=== PATIENT | male | born 1975 | race Caucasian/White ===

== ENCOUNTER 2017-08-17 07:15 | Emergency (ER) | payer OTHER ==
[2017-08-17 07:23] VITALS: TEMP 98.6
--- NOTE | 2017-08-17 07:30 | CPEKG ---
Heart Rate: 64 RR Interval: 938 P-R Interval: 152 QRSD Interval: 88 QT Interval: 380 QTC Interval: 392 P [place]: 19 QRS [place]: 26 T Wave [place]: 25 EKG Severity - NORMAL ECG - EKG Impression: SINUS RHYTHM Electronically Signed By: Phuc Muller 25-Aug-2017 12:34:54
[2017-08-17] MEDS ORDERED: DIAZEPAM 10 MG/2 ML SYR IVP ONE (07:45)
[2017-08-17] MEDS ORDERED: ONDANSETRON 4 MG/2 ML VIAL IVP ONE (07:45)
[2017-08-17] MEDS ORDERED: NS 1,000 ML IV ONE (07:45)
--- NOTE | 2017-08-17 07:48 | EDPHY ---
H & P Stated Complaint: SOB, dizzy, nausea since 2 am Time Seen by Provider: 08/17/17 07:35 HPI/ROS: Chief Complaint: Dizziness, nausea HPI: 42-year-old male woke at 2:00 a.m. with the sensation that the room was spinning and nausea. He went back to sleep. He woke again at 4:00 a.m. with similar sensation and again went back sleep. At 4:45 a.m. this morning he got up to get ready for work. He felt dizzy and nauseated. He went to work and was in the morning brief thing when he started feeling worse. Continue to have some nausea no vomiting. Persistent dizziness. It does seem worse when he moves his head but it is not associated with particular direction. Is not positional. Does not have a history of the same. Does have a history of Graves disease and is currently on Synthroid. Has not had any difficulties with this before no history of dizziness in the past. No recent head injuries or falls. No recent upper respiratory symptoms. Patient was in his usual state health yesterday. He has been off work for the last several days. ROS: 10 point Review of Systems is negative except as noted in the HPI. PMH: Graves disease, hypertension Medications: Lisinopril, Synthroid Allergies: Percocet Social History: No smoking, no alcohol, no recreational drug use Family History: Father had coronary artery disease at an older age Physical Exam: Gen: Awake, Alert, No Distress HEENT: Nose: no rhinorrhea Eyes: PERRLA, EOMI, mild bilateral horizontal nystagmus, not pronounced in a single direction Mouth: Moist mucosa Neck: Supple, no JVD Chest: nontender, lungs clear to auscultation Heart: S1, S2 normal, no murmur Abd: Soft, non-tender, no guarding Back: no CVA tenderness, no midline tenderness Ext: no edema, non-tender Skin: no rash Neuro: CN II-XII intact, Sensation grossly intact, Strength 5/5 in bilateral upper and lower extremities - Personal History Current Tetanus/Diphtheria Vaccine: Unsure Current Tetanus Diphtheria and Acellular Pertussis (TDAP): Unsure - Medical/Surgical History Hx Asthma: No Hx Chronic Respiratory Disease: No Hx Diabetes: No Hx Cardiac Disease: No Hx Renal Disease: No Hx Cirrhosis: No Hx Alcoholism: No Hx HIV/AIDS: No Hx Splenectomy or Spleen Trauma: No Other PMH: htn, hypothyroid - Social History Smoking Status: Never smoked Constitutional: Initial Vital Signs Temperature (C) 37.0 C 08/17/17 07:20 Heart Rate 69 08/17/17 07:20 Respiratory Rate 16 08/17/17 07:20 Blood Pressure 124/94 H 08/17/17 07:20 O2 Sat (%) 100 08/17/17 07:20 O2 Delivery Mode Room Air Allergies/Adverse Reactions: acetaminophen [From Percocet] Allergy (Verified 08/17/17 07:20) oxycodone [From Percocet] Allergy (Verified 08/17/17 07:20) Home Medications: Medication Instructions Recorded Lisinopril 08/17/17 Meclizine HCl [Meclizine HCl 25 mg 25 mg PO BID PRN #20 tab 08/17/17 (RX,OTC)] Ondansetron Odt [Zofran Odt 4 mg 4 mg PO Q4 PRN #10 tab 08/17/17 (*)] Synthroid 08/17/17 Medical Decision Making ED Course/Re-evaluation: 42-year-old male presenting with sudden onset of vertiginous symptoms. Symptoms consistent with benign positional vertigo versus labyrinthitis. He has not have any precipitation of symptoms with any particular type of movement so Jeff maneuver is not indicated at this time. He is improved after some diazepam ondansetron and fluids. He is ambulating unassisted in the department. He is not complaining of some mild headache and upper respiratory symptoms. I suspect he has an early labyrinthitis with upper respiratory infection. Will discharge with meclizine, ondansetron, fluids, follow up with primary care physician in 3-4 days. Return for any worsening symptoms. Does not have any head trauma or gradual onset of symptoms. All of his symptomatology suggest a peripheral cause of his vertiginous symptoms. - Data Points Laboratory Results: Laboratory Results 08/17/17 07:37 08/17/17 07:37 08/17/17 08/17/17 07:37 07:37 WBC 5.26 10^3/uL 10^3/uL (3.80-9.50) RBC 5.39 10^6/uL 10^6/uL (4.40-6.38) Hgb 17.1 g/dL g/dL (13.7-17.5) Hct 47.1 % % (40.0-51.0) MCV 87.4 fL fL (81.5-99.8) MCH 31.7 pg pg (27.9-34.1) MCHC 36.3 g/dL g/dL (32.4-36.7) RDW 13.3 % % (11.5-15.2) Plt Count 227 10^3/uL 10^3/uL (150-400) MPV 10.5 fL fL (8.7-11.7) Neut % (Auto) 53.5 % % (39.3-74.2) Lymph % (Auto) 36.7 % % (15.0-45.0) [place] % (Auto) 5.9 % % (4.5-13.0) Eos % (Auto) 2.7 % % (0.6-7.6) Baso % (Auto) 1.0 % % (0.3-1.7) Nucleat RBC Rel Count 0.0 % % (0.0-0.2) Absolute Neuts (auto) 2.82 10^3/uL 10^3/uL (1.70-6.50) Absolute Lymphs (auto) 1.93 10^3/uL 10^3/uL (1.00-3.00) Absolute Monos (auto) 0.31 10^3/uL 10^3/uL (0.30-0.80) Absolute Eos (auto) 0.14 10^3/uL 10^3/uL (0.03-0.40) Absolute Basos (auto) 0.05 10^3/uL 10^3/uL (0.02-0.10) Absolute Nucleated RBC 0.00 10^3/uL 10^3/uL (0-0.01) Immature Gran % 0.2 % % (0.0-1.1) Immature Gran # 0.01 10^3/uL 10^3/uL (0.00-0.10) Sodium 142 mEq/L mEq/L (134-144) Potassium 5.2 mEq/L mEq/L (3.5-5.2) Chloride 104 mEq/L mEq/L (97-110) Carbon Dioxide 26 mEq/l mEq/l (22-31) Anion Gap 12 mEq/L mEq/L (8-16) BUN 13 mg/dL mg/dL (7-23) Creatinine 1.4 mg/dL H mg/dL (0.7-1.3) Estimated GFR 55 Glucose 140 mg/dL H mg/dL (70-100) Calcium 9.9 mg/dL mg/dL (8.5-10.4) TSH 2.250 uIU/mL uIU/mL (0.465-4.680) Medications Given: Discontinued Medications Diazepam (Valium Injection) 5 mg IVP EDNOW ONE Stop: 08/17/17 07:46 Last Admin: 08/17/17 07:52 Dose: 5 mg Sodium Chloride (Ns) 1,000 mls @ 0 mls/hr IV ONCE ONE; Wide Open PRN Reason: Protocol Stop: 08/17/17 07:46 Last Admin: 08/17/17 07:50 Dose: 1,000 mls Ondansetron HCl (Zofran) 4 mg IVP EDNOW ONE Stop: 08/17/17 07:46 Last Admin: 08/17/17 07:51 Dose: 4 mg Departure - Departure Disposition: Home, Routine, Self-Care Clinical Impression: Vertigo, Labyrinthitis Condition: Good Instructions: Vertigo (ED), Labyrinthitis (ED) Additional Instructions: You may take meclizine as needed for your dizziness. Take ondansetron as needed for nausea or vomiting. Make sure to drink plenty of fluids. Follow up with your primary care physician in 3-4 days if symptoms are not improving. Return to the emergency depart for worsening dizziness, worsening headache, uncontrolled nausea vomiting, confusion, or any other concerns. Referrals: Georgette Elizabeth MD [Medical Doctor] - As per Instructions Prescriptions: Meclizine HCl [Meclizine HCl 25 mg (RX,OTC)] 25 mg PO BID PRN #20 tab PRN Reason: Dizziness Ondansetron Odt [Zofran Odt 4 mg (*)] 4 mg PO Q4 PRN #10 tab PRN Reason: Nausea/Vomiting, Can'T Take Po
[2017-08-17 07:53] LABS: PLATELET COUNT 227 10^3/uL (150-400)
[2017-08-17 09:35] VITALS: BP 121/88; PULSE 71; RESP 16; O2SAT 98
== END 2017-08-17 09:50 | disposition home or self-care (01) ==
DX: H83.09 Labyrinthitis, unspecified ear (principal); I10 Essential (primary) hypertension; E86.9 Volume depletion, unspecified
CPT/HCPCS: 96374; J2405